=== PATIENT | male | born 1980 | race Two or more races ===

== ENCOUNTER 2020-07-16 05:52 | Day surgery (SDC) | payer OTHER ==
[2020-07-16] MEDS ORDERED: PERCOCET 5-3251 EACH PO (08:17)
[2020-07-16] MEDS ORDERED: DERMOPLAST PAIN78 GM TOP (08:18)
[2020-07-16] MEDS ORDERED: RECTICARE30 GM TOP (08:19)
== END 2020-07-16 14:00 | disposition home or self-care (01) ==
LOC: CIR.AMB 05:52
PROVIDERS: ATTEND Surgery
DX: K60.1 Chronic anal fissure (principal); Z20.822 Contact with and (suspected) exposure to COVID-19